=== PATIENT | female | born 1985 | race Caucasian/White ===

== ENCOUNTER 2019-05-24 20:11 | Outpatient (CLI) | payer MEDICAID ==
--- NOTE | 2019-05-26 14:25 | Ultrasound Report ---
Reason: POSTDATES Procedure Date: 05/24/2019 Accession Number: [id number] / [id number] Procedure: US - OB Limited CPT Code: Final Report FULL RESULT: EXAM: LIMITED OBSTETRICAL ULTRASOUND EXAM DATE: 05/24/2019 09:46 PM. CLINICAL HISTORY: Postdates . COMPARISON: None. TECHNIQUE: Real-time sonographic evaluation of the fetus performed by the material handling equipment [place]. Multiple communications representative static images were saved for review. DATING: Established EGA 40 weeks 5 days with YE 05/19/2019. GENERAL EVALUATION [place] . Cardiac activity: 158 bpm. movement: Visualized. Presentation: Cephalic. Placenta: Anterior position. Amniotic fluid: Likely normal for gestational stage. AGUSTINA 8.5 cm. MVP 2.7 cm. IMPRESSION: 1. [place] live intrauterine with gestational age 40 weeks 5 days based on working due date by LMP. 2. Anterior placenta and cephalic positioning. RADIA
== END 2019-05-24 20:12 | disposition home or self-care (01) ==
LOC: DI 20:11
PROVIDERS: ATTEND Midwife
DX: O48.0 Post-term pregnancy (principal); Z3A.40 40 weeks gestation of pregnancy
CPT/HCPCS: 76815